=== PATIENT | female | born 1990 | race Caucasian/White ===

== ENCOUNTER 2016-08-21 21:58 | Emergency (ER) | payer OTHER ==
[~2016-08-21] VITALS: Ht 157.5 cm; Wt 92.9 kg
[~2016-08-21 21:58] MED LIST: LABETALOL HCL100 MG PO; NAPROSYN500 MG PO; PRENATAL TABLE1 EAC3 PO
[2016-08-21 22:31] LABS: HEMATOCRIT 42.3 % (36.0-46.0); MCH 27.9 PG (29.0-34.0); MCHC 32.9 G/DL (30.0-36.0); MCV 84.9 FL (83-99); MEAN PLAT.VOLUME 9.3 uM^3 (9.5-12.4); PLATELET COUNT 279 K/uL (156-360); RBC DIS.WIDTH-CV 13.3 % (11.8-14.6); RBC DIS.WIDTH-SD 41.2 % (39-53); RED BLOOD COUNT 4.98 M/uL (3.80-5.20)
[2016-08-21 22:54] LABS: CHLORIDE 108 mEq/L (99-109); SODIUM 139 mEq/L (136-147)
[2016-08-21 22:56] LABS: GLUCOSE 97 mg/dL (70-99)
[2016-08-21 22:57] LABS: ANION GAP 10 MEQ/L (2-14)
[2016-08-21 22:58] LABS: TOTAL BILIRUBIN 0.4 mg/dL (0.0-1.0)
[2016-08-21 22:59] LABS: ALKALINE PHOSPHATASE 61 IU/L (3-129)
[2016-08-21 23:00] LABS: GFR ESTIMATE (CALCULATED) > 59 mL/min/
[2016-08-21 23:01] LABS: UREA NITROGEN (BUN) 11 mg/dL (9-23)
[2016-08-21 23:03] LABS: LIPASE 25 U/L (1.0-51.0)
[2016-08-21 23:09] LABS: QUANTITATIVE HCG < 4.0 MIU/ML
[2016-08-22 00:37] LABS: ADD MIUA? YES; BILIRUBIN NEGATIVE; BLOOD NEGATIVE; COLOR STRAW ((YELLOW)); GLUCOSE (STRIP) NEGATIVE; KETONES NEGATIVE; LEUKOCYTES TRACE; NITRITE NEGATIVE; PROTEIN (STRIP) NEGATIVE; SPECIFIC GRAVITY 1.014 (1.000-1.030); UROBILINOGEN 0.2 MG/DL (0.2-1.0)
[2016-08-22 00:45] LABS: BACTERIA NONE SEEN /HPF; EPITHELIAL CELLS RARE /HPF; MUCUS TRACE /LPF; RED BLOOD CELLS 0-5 /HPF (0-5); UCUL ADDED? NO; WHITE BLOOD CELLS 0-5 /HPF (0-5)
[2016-08-22] MEDS ORDERED: PEPCID20 MG PO (00:48)
[2016-08-22] MEDS ORDERED: BENTYL20 MG PO (00:48)
[2016-08-22 01:19] VITALS: BP 122/64
== END 2016-08-22 01:20 | disposition home or self-care (01) ==
LOC: EME 21:58
DX: K29.70 Gastritis, unspecified, without bleeding (principal); R10.12 Left upper quadrant pain
CPT/HCPCS: 74177; 80053; 81003; 83690; 84702; 85027; 99281; 99285; J7030

== ENCOUNTER 2017-03-10 07:55 | Day surgery (SDC) | payer OTHER ==
[~2017-03-10] VITALS: Ht 157.5 cm; Wt 90.7 kg
[~2017-03-10 07:55] MED LIST changes: +ACID REDUCER20 MG PO; +BENTYL20 MG PO; +MEGACE40 MG PO; +MOTRIN800 MG PO; +PEPCID20 MG PO; +ROBITUSSIN AC,T10 ML PO
[2017-03-10 08:18] VITALS: BP 132/83
[2017-03-10] MEDS ORDERED: IBUPROFEN800 MG PO (10:30)
[2017-03-10] MEDS ORDERED: ENDOCET 5-3251 EACH PO (10:30)
[2017-03-10 11:56] VITALS: BP 115/77
[2017-03-10 12:55] VITALS: BP 106/63
== END 2017-03-10 13:06 | disposition home or self-care (01) ==
LOC: SDC
DX: G89.29 Other chronic pain (principal); R10.2 Pelvic and perineal pain; F32.9 Major depressive disorder, single episode, unspecified
CPT/HCPCS: J0131; J0330; J0690; J1100; J1170; J1885; J2250; J2405; J3010; Q0175

== ENCOUNTER 2017-04-22 06:33 | Day surgery (SDC) | payer OTHER ==
[~2017-04-22] VITALS: Ht 157.5 cm; Wt 92.0 kg
[~2017-04-22 06:33] MED LIST changes: +ENDOCET 5-3251 EACH PO; +IBUPROFEN800 MG PO; +METFORMIN HCL1000 M3 PO
[2017-04-22 07:53] VITALS: BP 110/68
[2017-04-22 07:55] LABS: POINT-OF-CARE METER ID UU14174212
[2017-04-22] MEDS ORDERED: ENDOCET 5-3251 EACH PO (10:00)
[2017-04-22] MEDS ORDERED: IBUPROFEN800 MG PO (10:00)
[2017-04-22 11:55] VITALS: BP 112/72
[2017-04-22 12:55] VITALS: BP 128/62
== END 2017-04-22 13:24 | disposition home or self-care (01) ==
LOC: SDC
PROVIDERS: Obstetrics & Gynecology
DX: N80.0 Endometriosis of uterus (principal); N92.0 Excessive and frequent menstruation with regular cycle; K21.9 Gastro-esophageal reflux disease without esophagitis; F41.9 Anxiety disorder, unspecified
CPT/HCPCS: 82948; 88307; J0131; J0690; J1100; J1170; J1885; J2250; J2704; J2710; J3010; J3475